=== PATIENT | male | born 1960 | race Hispanic/Latino ===

== ENCOUNTER 2022-05-16 23:49 | Inpatient (IN) | payer OTHER ==
[~2022-05-16] VITALS: Ht 170.2 cm; Wt 92.6 kg
[2022-05-17 00:22] VITALS: BP 138/83
[2022-05-17] MEDS ORDERED: ONDANSETRON 4MG INJ IV PRN (00:30)
[2022-05-17] MEDS ORDERED: ACETAMINOPHEN 325 MG TAB PO PRN ×2 (00:30)
[2022-05-17] MEDS ORDERED: NITROGLYCERIN 0.4 MG SL TAB SL PRN (00:30)
[2022-05-17] MEDS ORDERED: MORPHINE 4 MG SYG IV PRN (00:30)
[2022-05-17] MEDS ORDERED: MORPHINE 2 MG SYG IV PRN (00:30)
[2022-05-17 03:56] VITALS: BP 140/79
[2022-05-17 04:04] LABS: BASOPHILS % (AUTO) 0.5 % (0.0-5.0); EOSINOPHILS % (AUTO) 0.9 % (0.0-8.0); HEMATOCRIT 41.9 % (42-54); LYMPHOCYTES % (AUTO) 23.6 % (21.0-51.0); MEAN CORPUSCULAR HGB CONC 33.4 g/dL (32.0-36.0); MEAN CORPUSCULAR VOLUME 89.7 fL (79-99); MONOCYTES % (AUTO) 8.8 % (3.0-13.0); NEUTROPHILS % (AUTO) 65.9 % (40.0-77.0); PLATELET COUNT (AUTO) 262 K/uL (130-400); RED BLOOD CELL COUNT(AUTO) 4.67 MIL/uL (4.50-6.20); RED CELL DISTRIBUTION WIDTH 14.6 % (11.0-15.5); WHITE BLOOD COUNT (AUTO) 16.1 K/uL (4.8-10.8)
[2022-05-17 04:16] LABS: INR 1.01 (0.85-1.15)
[2022-05-17 04:19] LABS: ALBUMIN 3.4 g/dL (3.5-5.0); CREATININE 1.1 mg/dL (0.5-1.5); MAGNESIUM 1.8 mg/dL (1.80-2.40); POTASSIUM 4.4 mmol/L (3.5-5.1); TOTAL PROTEIN, SERUM 6.7 g/dL (6.0-8.3)
[2022-05-17] MEDS ORDERED: ZOSYN 3.375GM+NS 50ML 50 ML IV SCH ×2 (05:00→08:00)
[2022-05-17 08:00] VITALS: BP 133/75
[2022-05-17] MEDS: FAMOTIDINE 20MG VIAL IV SCH ×2 (08:57→21:16)
[2022-05-17] MEDS: 0.9%NACL 1000ML 1,000 ML IV SCH ×2 (09:04→20:30)
[2022-05-17] MEDS ORDERED: IOHEXOL 350 MG/ML 100ML INFUS..BTL IV ONE (09:38)
[2022-05-17 11:47] LABS: HEMOGLOBIN A1C 6.1 % (4.0-6.0)
[2022-05-17] MEDS: ZOSYN 3.375GM+NS 50ML 50 ML IV SCH ×2 (13:54→21:15)
[2022-05-17 16:00] VITALS: BP 131/77
[2022-05-17 20:04] VITALS: BP 157/89
[2022-05-17 23:36] VITALS: BP 141/82
[2022-05-18 04:12] LABS: HEMATOCRIT 43.1 % (42-54); MEAN CORPUSCULAR HEMOGLOBIN 29.4 pg (27.0-33.0); MEAN CORPUSCULAR HGB CONC 32.7 g/dL (32.0-36.0); RED BLOOD CELL COUNT(AUTO) 4.79 MIL/uL (4.50-6.20); RED CELL DISTRIBUTION WIDTH 14.7 % (11.0-15.5); WHITE BLOOD COUNT (AUTO) 10.1 K/uL (4.8-10.8)
[2022-05-18 04:17] VITALS: BP 129/74
[2022-05-18 04:31] LABS: CREATININE 1.1 mg/dL (0.5-1.5); POTASSIUM 3.6 mmol/L (3.5-5.1)
[2022-05-18] MEDS: ZOSYN 3.375GM+NS 50ML 50 ML IV SCH ×2 (05:28→11:49)
[2022-05-18] MEDS: 0.9%NACL 1000ML 1,000 ML IV SCH (06:21)
[2022-05-18 07:00] VITALS: BP 141/91
[2022-05-18 11:00] VITALS: BP 145/79
[2022-05-18] MEDS: FAMOTIDINE 20MG VIAL IV SCH (11:49)
[2022-05-18 15:00] VITALS: BP 154/79
[2022-05-18] MEDS ORDERED: AMOX1TAB15 PO (16:03)
[2022-05-18] MEDS ORDERED: TAMS-1 PO (16:03)
== END 2022-05-18 17:38 | disposition home or self-care (01) | DRG 694 ==
LOC: 3CH 23:56
PROVIDERS: ADMIT Hospitalist; ATTEND Hospitalist
DX: N13.8 Other obstructive and reflux uropathy (principal); N12 Tubulo-interstitial nephritis, not specified as acute or chronic; N20.2 Calculus of kidney with calculus of ureter; R00.1 Bradycardia, unspecified; S83.242A Other tear of medial meniscus, current injury, left knee, initial encounter; E66.9 Obesity, unspecified; X58.XXXA Exposure to other specified factors, initial encounter; Z68.32 Body mass index [BMI] 32.0-32.9, adult; Y93.89 Activity, other specified; Y92.89 Other specified places as the place of occurrence of the external cause; Y99.8 Other external cause status; Z87.442 Personal history of urinary calculi
CPT/HCPCS: 36415; 73562; 73721; 74176; 74400; 80048; 80053; 83036; 83735; 85025; 85027; 85610; 85730; 93005; G0378; J2543; J3490; Q9967

== ENCOUNTER 2022-08-03 05:54 | Day surgery (SDC) | payer OTHER ==
[2022-07-30 13:06] LABS: BASOPHILS % (AUTO) 0.7 % (0.0-5.0); HEMATOCRIT 45.7 % (42-54); LYMPHOCYTES % (AUTO) 29.4 % (21.0-51.0); MEAN CORPUSCULAR HEMOGLOBIN 29.8 pg (27.0-33.0); MEAN CORPUSCULAR HGB CONC 33.5 g/dL (32.0-36.0); MEAN CORPUSCULAR VOLUME 88.9 fL (79-99); MONOCYTES % (AUTO) 7.1 % (3.0-13.0); NEUTROPHILS % (AUTO) 61.5 % (40.0-77.0); PLATELET COUNT (AUTO) 312 K/uL (130-400); RED BLOOD CELL COUNT(AUTO) 5.14 MIL/uL (4.50-6.20); RED CELL DISTRIBUTION WIDTH 14.5 % (11.0-15.5); WHITE BLOOD COUNT (AUTO) 11.9 K/uL (4.8-10.8)
[2022-07-30 13:13] LABS: CREATININE 0.9 mg/dL (0.5-1.5); POTASSIUM 3.9 mmol/L (3.5-5.1)
[2022-08-02 12:22] VITALS: BP 159/83
[~2022-08-03] VITALS: Ht 170.2 cm; Wt 92.6 kg
[2022-08-03] VITALS (12 sets, daily range): BP systolic 131–160; BP diastolic 70–91
[~2022-08-03 05:54] MED LIST: AMOX1TAB15 PO; CEFAZOLIN SODIUM 2 GM VIAL IVPB SCH; LIDOCAINE 2%-EPI 1:200,000 20 ML VIAL IJ ONE; TAMS-1 PO
[2022-08-03] MEDS ORDERED: LACTATED RINGERS 1000ML 1,000 ML IV ONE (06:27)
[2022-08-03] MEDS ORDERED: IBUP-2482 PO (06:50)
[2022-08-03] MEDS ORDERED: PROPOFOL 10 MG/ML 20ML VIAL IV ONE (07:00)
[2022-08-03] MEDS ORDERED: FENTANYL CITRATE PF 50 MCG/1 ML 2ML VIAL ONE (07:00)
[2022-08-03] MEDS ORDERED: MIDAZOLAM HCL 1 MG/ML 2ML VIAL ONE (07:00)
[2022-08-03] MEDS ORDERED: LIDOCAINE PF 100MG/5ML (2%) SYRINGE 5ML ONE (07:00)
[2022-08-03] MEDS ORDERED: EPHEDRINE SULFATE 50 MG/ML AMPULE ONE (07:20)
[2022-08-03] MEDS ORDERED: CEFAZOLIN SODIUM 2 GM VIAL IVPB ONE (07:32)
[2022-08-03] MEDS ORDERED: FENTANYL CITRATE PF 50 MCG/1 ML 5ML AMP IV ONE (07:53)
[2022-08-03] MEDS ORDERED: ONDANSETRON 4MG INJ ONE (08:06)
[2022-08-03] MEDS ORDERED: DEXAMETHASONE SOD PHOSPHATE 10MG/ML 1ML VIAL ONE (08:06)
[2022-08-03] MEDS ORDERED: LIDOCAINE 2%-EPI 1:200,000 20 ML VIAL IJ ONE (08:11)
[2022-08-03] MEDS ORDERED: KETOROLAC 30MG VIAL (30MG/ML) ONE (08:46)
== END 2022-08-03 10:53 | disposition home or self-care (01) ==
LOC: DAH 05:54
PROVIDERS: ATTEND Orthopaedic Surgery
DX: M25.562 Pain in left knee (principal); M84.362A Stress fracture, left tibia, initial encounter for fracture; M17.12 Unilateral primary osteoarthritis, left knee; M23.212 Derangement of anterior horn of medial meniscus due to old tear or injury, left knee; M65.862 Other synovitis and tenosynovitis, left lower leg; M22.42 Chondromalacia patellae, left knee; E66.9 Obesity, unspecified; Z20.822 Contact with and (suspected) exposure to COVID-19; Z79.899 Other long term (current) drug therapy; Z98.890 Other specified postprocedural states; Z68.32 Body mass index [BMI] 32.0-32.9, adult
CPT/HCPCS: 80048; 85025; 87426; 36415; 29855; 29999; 29881; 73590; A4663; A4606; J7120; J3010 ×2; J1100; J2001; J3490 ×3; J2250; J2704; J2405; J1885; J0690 ×2; A6223; A4649 ×2; A4930; C1713; A5120; A4215; A4223; A4222; A4221; A6450

== ENCOUNTER 2023-01-05 05:50 | Observation (INO) | payer OTHER ==
[2023-01-03 15:36] LABS: BASOPHILS % (AUTO) 0.7 % (0.0-5.0); EOSINOPHILS % (AUTO) 1.5 % (0.0-8.0); HEMATOCRIT 42.9 % (42-54); LYMPHOCYTES % (AUTO) 30.1 % (21.0-51.0); MEAN CORPUSCULAR HEMOGLOBIN 30.3 pg (27.0-33.0); MEAN CORPUSCULAR HGB CONC 33.6 g/dL (32.0-36.0); MEAN CORPUSCULAR VOLUME 90.1 fL (79-99); MONOCYTES % (AUTO) 8.1 % (3.0-13.0); NEUTROPHILS % (AUTO) 59.5 % (40.0-77.0); PLATELET COUNT (AUTO) 279 K/uL (130-400); RED BLOOD CELL COUNT(AUTO) 4.76 MIL/uL (4.50-6.20); RED CELL DISTRIBUTION WIDTH 14.7 % (11.0-15.5); WHITE BLOOD COUNT (AUTO) 13.4 K/uL (4.8-10.8)
[2023-01-03 15:49] LABS: CREATININE 0.9 mg/dL (0.5-1.5); POTASSIUM 3.7 mmol/L (3.5-5.1)
[2023-01-03 15:50] LABS: INR 0.94 (0.85-1.15)
[2023-01-03 15:51] LABS: PARTIAL THROMBOPLASTIN TIME 27.3 SEC (26.3-35.5)
[2023-01-04 13:46] VITALS: BP 159/89; PULSE 67; RESP 16
[~2023-01-05] VITALS: Ht 167.6 cm; Wt 91.2 kg
[2023-01-05] VITALS (28 sets, daily range): BP systolic 120–161; BP diastolic 62–85; PULSE 48–72; RESP 12–20; O2SAT 95–96
[~2023-01-05 05:50] MED LIST changes: -AMOX1TAB15 PO; +CEFAZOLIN SODIUM 2 GM VIAL IVPB PRN; -CEFAZOLIN SODIUM 2 GM VIAL IVPB SCH; +LACTATED RINGERS 1000ML 1,000 ML IV SCH; -LIDOCAINE 2%-EPI 1:200,000 20 ML VIAL IJ ONE; -TAMS-1 PO
[2023-01-05 06:28] LABS: HEMATOCRIT 44.3 % (42-54); MEAN CORPUSCULAR HEMOGLOBIN 30.1 pg (27.0-33.0); MEAN CORPUSCULAR HGB CONC 33.4 g/dL (32.0-36.0); PLATELET COUNT (AUTO) 287 K/uL (130-400); RED BLOOD CELL COUNT(AUTO) 4.92 MIL/uL (4.50-6.20); RED CELL DISTRIBUTION WIDTH 14.7 % (11.0-15.5); WHITE BLOOD COUNT (AUTO) 11.3 K/uL (4.8-10.8)
[2023-01-05] MEDS ORDERED: TRANEXAMIC ACID 1000MG/10ML ONE (06:39)
[2023-01-05] MEDS ORDERED: AEC81 PO (07:03)
[2023-01-05] MEDS ORDERED: CELE100 PO (07:03)
[2023-01-05] MEDS ORDERED: GABA-529 PO (07:03)
[2023-01-05] MEDS ORDERED: ACET-2079 PO (07:03)
[2023-01-05] MEDS ORDERED: ONDANSETRON 4MG INJ ONE (07:13)
[2023-01-05] MEDS ORDERED: DEXAMETHASONE SOD PHOSPHATE 10MG/ML 1ML VIAL ONE (07:13)
[2023-01-05] MEDS ORDERED: FENTANYL CITRATE PF 50 MCG/1 ML 2ML VIAL ONE (07:13)
[2023-01-05] MEDS ORDERED: NEOSTIGMINE 5MG/5ML SYR IV ONE (07:13)
[2023-01-05] MEDS ORDERED: LIDOCAINE PF 100MG/5ML (2%) SYRINGE 5ML ONE (07:13)
[2023-01-05] MEDS ORDERED: MIDAZOLAM HCL 1 MG/ML 2ML VIAL ONE (07:13)
[2023-01-05] MEDS ORDERED: GLYCOPYRROLATE 1 MG/5 ML SYRINGE ONE (07:13)
[2023-01-05] MEDS ORDERED: PROPOFOL 10 MG/ML 20ML VIAL IV ONE (07:13)
[2023-01-05] MEDS ORDERED: SUCCINYLCHOLINE CHLORIDE 20 MG/ML 10 ML VIAL ONE (07:13)
[2023-01-05] MEDS ORDERED: ROCURONIUM 10MG/1ML SYR 10 MG/ML ML ONE (07:14)
[2023-01-05] MEDS ORDERED: ROPIVACAINE 0.5% 5MG/ML 30ML IJ ONE ×2 (07:22→08:11)
[2023-01-05 07:41] LABS: BAND NEUTROPHILS % (MANUAL) 2 % (0-2); EOSINOPHILS % (MANUAL) 2 % (1-6); LYMPHOCYTES % (MANUAL) 37 % (22-44); MAN.DIFF COMMENT-IMPRESSION MANUAL DIFFERENTIAL; MONOCYTES % (MANUAL) 6 % (2-9); PLATELET MORPHOLOGY COMMENT ADEQUATE; SEGMENTED NEUTROPHILS % 53 % (40-70)
[2023-01-05] MEDS ORDERED: EPHEDRINE SULFATE 50 MG/ML AMPULE ONE (07:53)
[2023-01-05] MEDS ORDERED: MORPHINE PF 100MG/10ML AMP IV ONE (08:52)
[2023-01-05] MEDS ORDERED: ONDANSETRON 4MG INJ IVP PRN (10:00)
[2023-01-05] MEDS ORDERED: HYDROCODONE/ACETAMINOPHEN 5/325 MG TAB PO PRN (10:00)
[2023-01-05] MEDS: ACETAMINOPHEN 1,000 MG/100 ML VIAL IV SCH ×3 (10:00→23:41)
[2023-01-05] MEDS ORDERED: POTASSIUM CHLORIDE 20MEQ/100ML 100 ML IV PRN (10:00)
[2023-01-05] MEDS ORDERED: POTASSIUM CHLORIDE 10% ELIXIR 20 MEQ/15 ML UDCUP PO PRN (10:00)
[2023-01-05] MEDS ORDERED: MORPHINE 4 MG SYG IVP PRN (10:00)
[2023-01-05] MEDS ORDERED: ACETAMINOPHEN 1,000 MG/100 ML VIAL IV ONE ×2 (10:24→23:24)
[2023-01-05] MEDS: 0.9%NACL 1000ML 1,000 ML IV SCH ×2 (12:09→21:36)
[2023-01-05] MEDS: TRAMADOL HCL 50 MG TABLET PO SCH ×3 (12:22→23:45)
[2023-01-05] MEDS: CALDOLOR 800MG+NS 250ML 250 ML IV SCH ×2 (12:25→21:38)
[2023-01-05] MEDS ORDERED: IBUPROFEN 800MG + NS 250ML IV SCH (13:00)
[2023-01-05] MEDS: CEFAZOLIN SODIUM 1 GM VIAL IVPB SCH ×2 (15:35→23:30)
[2023-01-05] MEDS: KCL 20 MEQ ERTAB PO PRN ×2 (16:36→21:37)
[2023-01-05] MEDS: FAMOTIDINE 20MG TAB PO SCH (21:36)
[2023-01-05] MEDS: ASPIRIN 81 MG EC TAB PO SCH (21:37)
[2023-01-06] VITALS (8 sets, daily range): BP systolic 125–166; BP diastolic 71–91; PULSE 57–75; RESP 16–20; O2SAT 95–100
[2023-01-06] MEDS ORDERED: ACETAMINOPHEN 1,000 MG/100 ML VIAL IV ONE (04:34)
[2023-01-06] MEDS: CALDOLOR 800MG+NS 250ML 250 ML IV SCH (04:36)
[2023-01-06 04:38] LABS: HEMATOCRIT 39.8 % (42-54); MEAN CORPUSCULAR HEMOGLOBIN 29.9 pg (27.0-33.0); MEAN CORPUSCULAR HGB CONC 32.4 g/dL (32.0-36.0); MEAN CORPUSCULAR VOLUME 92.1 fL (79-99); RED BLOOD CELL COUNT(AUTO) 4.32 MIL/uL (4.50-6.20); RED CELL DISTRIBUTION WIDTH 15.4 % (11.0-15.5); WHITE BLOOD COUNT (AUTO) 14.1 K/uL (4.8-10.8)
[2023-01-06 04:48] LABS: POTASSIUM 4.2 mmol/L (3.5-5.1)
[2023-01-06] MEDS: TRAMADOL HCL 50 MG TABLET PO SCH ×3 (05:50→18:51)
[2023-01-06] MEDS: 0.9%NACL 1000ML 1,000 ML IV SCH (06:00)
[2023-01-06] MEDS: POLYETHYLENE GLYCOL 3350 17 GM POWD.PACK PO SCH ×2 (09:00→10:09)
[2023-01-06] MEDS: GABAPENTIN 100 MG CAPSULE PO SCH (10:09)
[2023-01-06] MEDS: ASPIRIN 81 MG EC TAB PO SCH ×2 (10:09→22:23)
[2023-01-06] MEDS: FAMOTIDINE 20MG TAB PO SCH ×2 (10:09→22:23)
[2023-01-06] MEDS: HYDROCODONE/ACETAMINOPHEN 10/325 MG TAB PO PRN (22:22)
[2023-01-07] MEDS: TRAMADOL HCL 50 MG TABLET PO SCH ×3 (00:55→12:24)
[2023-01-07 03:40] VITALS: BP 146/79; PULSE 64; RESP 18
[2023-01-07 08:00] VITALS: BP 153/90; PULSE 94; RESP 18; O2SAT 91
[2023-01-07] MEDS: FAMOTIDINE 20MG TAB PO SCH (08:47)
[2023-01-07] MEDS: HYDROCODONE/ACETAMINOPHEN 10/325 MG TAB PO PRN (08:47)
[2023-01-07] MEDS: ASPIRIN 81 MG EC TAB PO SCH (08:47)
[2023-01-07] MEDS: GABAPENTIN 100 MG CAPSULE PO SCH (08:48)
[2023-01-07 11:33] VITALS: BP 137/77; PULSE 68; RESP 18
[2023-01-07] MEDS ORDERED: HYDR-4060 PO (13:39)
[2023-01-07 16:35] VITALS: BP 143/80; PULSE 74; RESP 18
[2023-01-08] MEDS ORDERED: BISACODYL 10 MG SUPP.RECT RC PRN (10:00)
== END 2023-01-07 18:25 | disposition home or self-care (01) ==
LOC: DAH 05:50 → DAHIP 05:51 → DAH 05:51 → 4DH 11:15
PROVIDERS: ADMIT Orthopaedic Surgery; ATTEND Orthopaedic Surgery
DX: M17.12 Unilateral primary osteoarthritis, left knee (principal); Z20.822 Contact with and (suspected) exposure to COVID-19; Z79.899 Other long term (current) drug therapy; Z98.890 Other specified postprocedural states; Z79.82 Long term (current) use of aspirin
CPT/HCPCS: 80048 ×2; 85025 ×2; 85610; 85730; 87426; 36415 ×3; 87641; 27447; 96376; 96365; 96366 ×4; 96367; 64447; 97161; 97039 ×3; 97116 ×5; 96375; 85027; 97530 ×3; A6260; C1713; G0378 ×53; A4663; J7030; J7120 ×2; J3010; J0690 ×4; J3490 ×3; J1100; J2710; J0330; J2001; J2250; J2704; J2274; J2405; J2795 ×2; J1741 ×3; A6223; G0168; A4649 ×3; A6212; C1776 ×3; A5120 ×2; A4215; A4223; A4222; A4221; J2270